=== PATIENT | male | born 1945 | race Hispanic/Latino ===

== ENCOUNTER 2019-01-04 13:05 | Emergency (ER) | payer OTHER, MEDICARE ==
[~2019-01-04 13:05] MED LIST: A RED PO; ATEN25TA PO; HYDROCHLOROT PO; PRAV40TA3 PO; VITAMIN D PO
[2019-01-04 14:04] LABS: BASOPHILS % (AUTO) 0.4 % (0.0-5.0); EOSINOPHILS % (AUTO) 0.9 % (0.0-8.0); HEMATOCRIT 43.3 % (42-54); LYMPHOCYTES % (AUTO) 12.9 % (21.0-51.0); MEAN CORPUSCULAR HEMOGLOBIN 30.4 pg (27.0-33.0); MEAN CORPUSCULAR VOLUME 89.3 fL (79-99); MONOCYTES % (AUTO) 7.1 % (3.0-13.0); NEUTROPHILS % (AUTO) 78.7 % (40.0-77.0); NUCLEATED RED BLOOD CELLS 0.1 % (0.0-0.19); PLATELET COUNT (AUTO) 179 K/uL (130-400); RED BLOOD CELL COUNT(AUTO) 4.85 MIL/uL (4.50-6.20); RED CELL DISTRIBUTION WIDTH 15.1 % (11.0-15.5); WHITE BLOOD COUNT (AUTO) 7.2 K/uL (4.8-10.8)
[2019-01-04 14:17] LABS: INR 1.06 (0.85-1.15); PARTIAL THROMBOPLASTIN TIME 28.4 SEC (26.3-35.5); PROTHROMBIN TIME 11.1 SEC (9.6-11.6)
[2019-01-04 14:19] LABS: CREATININE 0.5 mg/dL (0.5-1.5); POTASSIUM 3.4 mmol/L (3.5-5.1)
[2019-01-04 14:23] LABS: ALBUMIN 3.7 g/dL (3.5-5.0); BILIRUBIN,TOTAL 1.1 mg/dL (0.2-1.0); TOTAL PROTEIN, SERUM 7.3 g/dL (6.0-8.3)
[2019-01-04] MEDS ORDERED: POTASSIUM CHLORIDE 20 MEQ ERTAB PO ONE (15:03)
[2019-01-04] MEDS ORDERED: AMLODIPINE BESYLATE 5 MG TAB PO ONE (15:12)
[2019-01-04] MEDS ORDERED: HYDRALAZINE HCL 20 MG/ML VIAL ONE (15:31)
== END 2019-01-04 16:39 | disposition home or self-care (01) ==
LOC: EDH 13:05
DX: I10 Essential (primary) hypertension (principal); E78.5 Hyperlipidemia, unspecified
CPT/HCPCS: 36415; 71045; 80053; 84484; 85025; 85610; 85730; 93005; 96365; 99285; J0360

== ENCOUNTER 2020-10-11 18:21 | Observation (INO) | payer OTHER, MEDICARE ==
[~2020-10-11] VITALS: Ht 170.2 cm; Wt 88.1 kg
[2020-10-11] MEDS ORDERED: FENTANYL CITRATE PF 50 MCG/1 ML 2ML VIAL ONE (18:51)
[2020-10-11 19:30] LABS: BASOPHILS % (AUTO) 0.4 % (0.0-5.0); EOSINOPHILS % (AUTO) 0.2 % (0.0-8.0); HEMATOCRIT 42.2 % (42-54); MEAN CORPUSCULAR HEMOGLOBIN 29.4 pg (27.0-33.0); MEAN CORPUSCULAR HGB CONC 33.4 g/dL (32.0-36.0); MEAN CORPUSCULAR VOLUME 87.9 fL (79-99); MONOCYTES % (AUTO) 6.5 % (3.0-13.0); NEUTROPHILS % (AUTO) 85.6 % (40.0-77.0); PLATELET COUNT (AUTO) 207 K/uL (130-400); RED CELL DISTRIBUTION WIDTH 13.4 % (11.0-15.5); WHITE BLOOD COUNT (AUTO) 12.7 K/uL (4.8-10.8)
[2020-10-11] MEDS ORDERED: SODIUM CHLORIDE 0.9% 1000ML 1,000 ML IV ONE (19:33)
[2020-10-11 19:42] LABS: INR 1.1 (0.85-1.15); PROTHROMBIN TIME 11.9 SEC (9.6-11.6)
[2020-10-11 19:43] LABS: CARBON DIOXIDE 28 mmol/L (21-32); CHLORIDE 102 mmol/L (101-111); CREATININE 0.4 mg/dL (0.5-1.5); GLOMERULAR FILTR. RATE CALC 222 mL/min (>60); GLUCOSE,RANDOM 109 mg/dL (70-105); POTASSIUM 3.9 mmol/L (3.5-5.1); SODIUM SERUM 137 mmol/L (136-145); UREA NITROGEN, BLOOD 24 mg/dL (7-18)
[2020-10-11 19:47] LABS: ALANINE AMINOTRANSFERASE 42 U/L (12-78); ALBUMIN 3.4 g/dL (3.5-5.0); ASPARTATE AMINOTRANSFERASE 42 U/L (10-37); BILIRUBIN,TOTAL 0.7 mg/dL (0.2-1.0); TOTAL PROTEIN, SERUM 6.7 g/dL (6.0-8.3)
[2020-10-11 19:50] LABS: LIPASE < 50 U/L (114-286)
[2020-10-11] MEDS ORDERED: IOHEXOL-350 75 ML VIAL IV ONE (20:01)
[2020-10-12] MEDS ORDERED: NITROGLYCERIN 1GM/1 INCH PACKET TD ONE ×4 (01:55→22:02)
[2020-10-12] MEDS ORDERED: ASPIRIN 325 MG TABLET ONE (07:25)
[2020-10-12] MEDS: ASPIRIN 325 MG TABLET PO SCH (09:00)
[2020-10-12] MEDS ORDERED: GLUCAGON 1MG KIT 1 MG ML IM PRN (14:00)
[2020-10-12] MEDS ORDERED: LIDOCAINE HCL-MPF 1% 2ML VIAL IV PRN (14:00)
[2020-10-12] MEDS ORDERED: POTASSIUM CHLORIDE 20MEQ/100ML 100 ML IV PRN (14:00)
[2020-10-12] MEDS ORDERED: DEXTROSE 50%-WATER 50 ML DISP.SYRIN IV PRN (14:00)
[2020-10-12] MEDS ORDERED: MAGNESIUM 2GM PREMIX 50ML 50 ML IV PRN (14:00)
[2020-10-12] MEDS ORDERED: ACETAMINOPHEN 325 MG TAB PO PRN (14:00)
[2020-10-12] MEDS ORDERED: ONDANSETRON HCL 4 MG/2 ML VIAL IVP PRN (14:00)
[2020-10-12] MEDS ORDERED: POTASSIUM CHLORIDE 10% ELIXIR 20 MEQ/15 ML UDCUP PO PRN (14:00)
[2020-10-12] MEDS ORDERED: ENOXAPARIN SODIUM 30 MG/0.3 ML SQ ONE (16:08)
[2020-10-12] MEDS ORDERED: LACTULOSE 20 GM/30 ML UDCUP ONE ×2 (16:08→22:02)
[2020-10-12] MEDS ORDERED: FAMOTIDINE/PF 20 MG/2 ML VIAL IV ONE ×2 (16:09→23:00)
[2020-10-12] MEDS: NITROGLYCERIN 1GM/1 INCH PACKET TD SCH ×2 (19:15→22:00)
[2020-10-12] MEDS: FAMOTIDINE/PF 20 MG/2 ML VIAL IV SCH (21:00)
[2020-10-12] MEDS: LACTULOSE 20 GM/30 ML UDCUP PO SCH (21:00)
[2020-10-12] MEDS ORDERED: ATORVASTATIN CALCIUM 20 MG TABLET ONE (22:02)
[2020-10-13] MEDS: NITROGLYCERIN 1GM/1 INCH PACKET TD SCH ×4 (00:48→22:53)
[2020-10-13 02:50] VITALS: BP 146/83
[2020-10-13] MEDS ORDERED: ATOR40TA71 PO (03:02)
[2020-10-13] MEDS ORDERED: AREDS PO (03:02)
[2020-10-13] MEDS ORDERED: ATEN25TA PO (03:02)
[2020-10-13] MEDS ORDERED: VITAMIN D PO (03:02)
[2020-10-13] MEDS ORDERED: HYDR12.54 PO (03:02)
[2020-10-13 06:13] LABS: CREATININE 0.5 mg/dL (0.5-1.5); POTASSIUM 3.8 mmol/L (3.5-5.1)
[2020-10-13 07:21] LABS: HEMATOCRIT 37.7 % (42-54); MEAN CORPUSCULAR HEMOGLOBIN 29.9 pg (27.0-33.0); MEAN CORPUSCULAR HGB CONC 33.4 g/dL (32.0-36.0); MEAN CORPUSCULAR VOLUME 89.5 fL (79-99); RED BLOOD CELL COUNT(AUTO) 4.21 MIL/uL (4.50-6.20); RED CELL DISTRIBUTION WIDTH 13.7 % (11.0-15.5); WHITE BLOOD COUNT (AUTO) 9.6 K/uL (4.8-10.8)
[2020-10-13 08:24] VITALS: BP 164/95
[2020-10-13] MEDS: CHOLECALCIFEROL 1000 MG PO SCH (09:00)
[2020-10-13] MEDS: AREDS PO SCH (09:00)
[2020-10-13] MEDS: ASPIRIN 325 MG TABLET PO SCH (09:02)
[2020-10-13] MEDS: FAMOTIDINE/PF 20 MG/2 ML VIAL IV SCH ×2 (09:02→22:52)
[2020-10-13] MEDS: HYDROCHLOROTHIAZIDE 25 MG TABLET PO SCH (09:03)
[2020-10-13] MEDS: LACTULOSE 20 GM/30 ML UDCUP PO SCH ×2 (09:03→22:52)
[2020-10-13] MEDS: ATENOLOL 25 MG TABLET PO SCH (09:03)
[2020-10-13] MEDS: ENOXAPARIN SODIUM 30 MG/0.3 ML SQ SCH (09:05)
[2020-10-13 11:46] VITALS: BP 159/86
[2020-10-13 17:02] VITALS: BP 167/82
[2020-10-13 19:50] VITALS: BP 162/86
[2020-10-13] MEDS: ATORVASTATIN CALCIUM 40 MG TABLET PO SCH (22:53)
[2020-10-14] VITALS (7 sets, daily range): BP systolic 110–168; BP diastolic 59–90
[2020-10-14] MEDS: NITROGLYCERIN 1GM/1 INCH PACKET TD SCH ×3 (05:50→23:04)
[2020-10-14 05:59] LABS: HEMATOCRIT 38.3 % (42-54); MEAN CORPUSCULAR HEMOGLOBIN 30.2 pg (27.0-33.0); MEAN CORPUSCULAR HGB CONC 33.7 g/dL (32.0-36.0); MEAN CORPUSCULAR VOLUME 89.7 fL (79-99); RED BLOOD CELL COUNT(AUTO) 4.27 MIL/uL (4.50-6.20); RED CELL DISTRIBUTION WIDTH 13.4 % (11.0-15.5); WHITE BLOOD COUNT (AUTO) 8.9 K/uL (4.8-10.8)
[2020-10-14 06:28] LABS: CREATININE 0.4 mg/dL (0.5-1.5); MAGNESIUM 1.8 mg/dL (1.80-2.40); POTASSIUM 3.5 mmol/L (3.5-5.1)
[2020-10-14] MEDS: AREDS PO SCH (09:00)
[2020-10-14] MEDS: CHOLECALCIFEROL 1000 MG PO SCH (09:00)
[2020-10-14] MEDS: FAMOTIDINE/PF 20 MG/2 ML VIAL IV SCH ×2 (09:28→23:04)
[2020-10-14] MEDS: ASPIRIN 325 MG TABLET PO SCH (09:29)
[2020-10-14] MEDS: HYDROCHLOROTHIAZIDE 25 MG TABLET PO SCH (09:29)
[2020-10-14] MEDS: ATENOLOL 25 MG TABLET PO SCH (09:30)
[2020-10-14] MEDS: ENOXAPARIN SODIUM 30 MG/0.3 ML SQ SCH (09:35)
[2020-10-14] MEDS: LACTULOSE 20 GM/30 ML UDCUP PO SCH ×2 (09:35→23:03)
[2020-10-14] MEDS: POTASSIUM CHLORIDE 20 MEQ ERTAB PO PRN ×2 (09:37→12:15)
[2020-10-14] MEDS: ATORVASTATIN CALCIUM 40 MG TABLET PO SCH (23:04)
[2020-10-15 03:55] VITALS: BP 144/79
[2020-10-15] MEDS: NITROGLYCERIN 1GM/1 INCH PACKET TD SCH ×2 (05:57→14:00)
[2020-10-15 07:00] VITALS: BP 128/65
[2020-10-15] MEDS: ATENOLOL 25 MG TABLET PO SCH (09:00)
[2020-10-15] MEDS: FAMOTIDINE/PF 20 MG/2 ML VIAL IV SCH (10:29)
[2020-10-15] MEDS: ENOXAPARIN SODIUM 30 MG/0.3 ML SQ SCH (10:29)
[2020-10-15] MEDS: HYDROCHLOROTHIAZIDE 25 MG TABLET PO SCH (10:30)
[2020-10-15] MEDS: ASPIRIN 325 MG TABLET PO SCH (10:30)
[2020-10-15] MEDS: CHOLECALCIFEROL 1000 MG PO SCH (10:37)
[2020-10-15] MEDS: AREDS PO SCH (10:37)
[2020-10-15] MEDS: LACTULOSE 20 GM/30 ML UDCUP PO SCH (10:38)
[2020-10-15 11:30] VITALS: BP 119/76
[2020-10-15] MEDS ORDERED: IPRATROPIUM/ALBUTEROL SULFATE 3 ML SOLUTION IH PRN (12:30)
[2020-10-15 16:00] VITALS: BP 142/72
== END 2020-10-15 17:08 ==
LOC: EDH 18:21 → EDHIP 22:06 → 3CH 10-13 00:37
PROVIDERS: ADMIT Internal Medicine Critical Care Medicine; ATTEND Internal Medicine Critical Care Medicine
DX: R10.9 Unspecified abdominal pain (principal); R07.89 Other chest pain; I20.9 Angina pectoris, unspecified; E78.5 Hyperlipidemia, unspecified; I10 Essential (primary) hypertension; I71.4 Abdominal aortic aneurysm, without rupture; H91.90 Unspecified hearing loss, unspecified ear; Z79.899 Other long term (current) drug therapy; Z88.2 Allergy status to sulfonamides
CPT/HCPCS: 36415 ×4; 71045; 74177; 80048 ×2; 80053; 83605; 83690; 83735 ×2; 84484 ×4; 85025; 85027 ×2; 85378; 85610; 85730; 86677; 87040 ×2; 93005 ×4; 93306; 93356; 94640; 94664; 96372 ×3; 96374; 96376 ×3; 97039 ×3; 97161; 97530; 99285; G0378 ×89; G8979; G8981; G8982; G8983; J1650 ×4; J3010; J3490 ×7; J7030; Q9967

== ENCOUNTER 2022-02-16 11:38 | Observation (INO) | payer OTHER, MEDICARE ==
[~2022-02-16] VITALS: Ht 170.2 cm; Wt 82.7 kg
[~2022-02-16 11:38] MED LIST changes: -A RED PO; +AREDS PO; +ATOR40TA71 PO; +HYDR12.54 PO; -HYDROCHLOROT PO; -PRAV40TA3 PO
[2022-02-16 12:47] LABS: BASOPHILS % (AUTO) 0.3 % (0.0-5.0); EOSINOPHILS % (AUTO) 0.1 % (0.0-8.0); HEMATOCRIT 45.4 % (42-54); LYMPHOCYTES % (AUTO) 7.3 % (21.0-51.0); MEAN CORPUSCULAR HEMOGLOBIN 29.1 pg (27.0-33.0); MEAN CORPUSCULAR HGB CONC 34.1 g/dL (32.0-36.0); MEAN CORPUSCULAR VOLUME 85.3 fL (79-99); MONOCYTES % (AUTO) 10.4 % (3.0-13.0); NEUTROPHILS % (AUTO) 81.4 % (40.0-77.0); PLATELET COUNT (AUTO) 211 K/uL (130-400); RED BLOOD CELL COUNT(AUTO) 5.32 MIL/uL (4.50-6.20); WHITE BLOOD COUNT (AUTO) 11.4 K/uL (4.8-10.8)
[2022-02-16 13:10] LABS: B-TYPE NATRIURETIC PEPTIDE 68 pg/mL (0-100)
[2022-02-16 14:23] LABS: APPEARANCE,URINE CLEAR (CLEAR); BILIRUBIN,URINE NEGATIVE (NEGATIVE); COLOR,URINE YELLOW (YELLOW); GLUCOSE, URINE (UA) NEGATIVE (NEGATIVE); KETONES,URINE NEGATIVE (NEGATIVE); LEUKOCYTE ESTERASE ,URINE TRACE (NEGATIVE); NITRATE,URINE NEGATIVE (NEGATIVE); OCCULT BLOOD,URINE SMALL (NEGATIVE); PROTEIN,URINE NEGATIVE (NEGATIVE); UROBILINOGEN,URINE 0.2 mg/dL (0.2-1.0)
[2022-02-16 14:32] LABS: BACTERIA,URINE Rare /HPF (None Seen); SQUAMOUS EPITHELIAL CELL,UR Rare /HPF (0-2); WBC,URINE 0-1 /HPF (0-1)
[2022-02-16 15:51] LABS: CREATININE 0.7 mg/dL (0.5-1.5); POTASSIUM 3.9 mmol/L (3.5-5.1)
[2022-02-16 15:56] LABS: ALBUMIN 3.3 g/dL (3.5-5.0); BILIRUBIN,TOTAL 0.6 mg/dL (0.2-1.0); TOTAL PROTEIN, SERUM 7.1 g/dL (6.0-8.3)
[2022-02-16] MEDS ORDERED: TEMAZEPAM 15 MG CAPSULE PO PRN (18:30)
[2022-02-16] MEDS ORDERED: ACETAMINOPHEN 650 MG SUPPOSITORY RC PRN (18:30)
[2022-02-16] MEDS ORDERED: LACTULOSE 20 GM/30 ML UDCUP PO PRN (18:30)
[2022-02-16] MEDS ORDERED: ACETAMINOPHEN 325 MG TAB PO PRN (18:30)
[2022-02-16] MEDS ORDERED: ONDANSETRON 4MG INJ IVP PRN (18:30)
[2022-02-16] MEDS ORDERED: LABETALOL 20MG SYG IV PRN (18:30)
[2022-02-16] MEDS ORDERED: CLONIDINE HCL 0.1 MG TABLET PO PRN (18:30)
[2022-02-16] MEDS: INSULIN LISPRO 100 UNIT/ML 3ML SQ SCH (20:59)
[2022-02-16 23:35] VITALS: BP 111/76
[2022-02-17 04:00] VITALS: BP 95/60
[2022-02-17 05:52] LABS: HEMATOCRIT 42.2 % (42-54); MEAN CORPUSCULAR HEMOGLOBIN 29.6 pg (27.0-33.0); MEAN CORPUSCULAR HGB CONC 34.4 g/dL (32.0-36.0); MEAN CORPUSCULAR VOLUME 86.1 fL (79-99); RED BLOOD CELL COUNT(AUTO) 4.9 MIL/uL (4.50-6.20); WHITE BLOOD COUNT (AUTO) 11.4 K/uL (4.8-10.8)
[2022-02-17] MEDS: INSULIN LISPRO 100 UNIT/ML 3ML SQ SCH ×4 (06:11→21:00)
[2022-02-17 06:27] LABS: CREATININE 0.6 mg/dL (0.5-1.5); PHOSPHORUS 3.4 mg/dL (2.5-4.9); POTASSIUM 3.6 mmol/L (3.5-5.1)
[2022-02-17] MEDS ORDERED: HYDROCHLOROTHIAZIDE 25 MG TABLET PO SCH (09:00)
[2022-02-17 09:29] VITALS: BP 104/63
[2022-02-17] MEDS: POLYETHYLENE GLYCOL 3350 17 GM POWD.PACK PO SCH (10:36)
[2022-02-17] MEDS: ASPIRIN 81MG CHEW TAB PO SCH (10:36)
[2022-02-17] MEDS: ENOXAPARIN SODIUM 40 MG/0.4 ML SYRINGE SQ SCH (10:36)
[2022-02-17] MEDS: ATENOLOL 25 MG TABLET PO SCH (10:37)
[2022-02-17] MEDS: PANTOPRAZOLE 40 MG/VIAL IVP SCH (10:37)
[2022-02-17 12:13] VITALS: BP 110/66
[2022-02-17] MEDS: CEFTRIAXONE 2GM VIAL IVPB SCH (14:39)
[2022-02-17 17:42] VITALS: BP 111/58
[2022-02-17 19:22] VITALS: BP 109/64
[2022-02-17] MEDS ORDERED: ATORVASTATIN 40 MG TABLET PO SCH (21:00)
[2022-02-17] MEDS: KCL 20 MEQ ERTAB PO PRN ×2 (22:43→23:52)
[2022-02-17] MEDS ORDERED: LIDOCAINE HCL-MPF 1% 2ML VIAL IV PRN (23:00)
[2022-02-17] MEDS ORDERED: POTASSIUM CHLORIDE 10% ELIXIR 20 MEQ/15 ML UDCUP PO PRN (23:00)
[2022-02-17] MEDS ORDERED: POTASSIUM CHLORIDE 20MEQ/100ML 100 ML IV PRN (23:00)
[2022-02-17 23:58] VITALS: BP 131/74
[2022-02-18 03:35] VITALS: BP 135/78
[2022-02-18 03:41] VITALS: BP 126/80
[2022-02-18 05:30] LABS: HEMATOCRIT 41.9 % (42-54); MEAN CORPUSCULAR HGB CONC 33.4 g/dL (32.0-36.0); MEAN CORPUSCULAR VOLUME 86.9 fL (79-99); RED BLOOD CELL COUNT(AUTO) 4.82 MIL/uL (4.50-6.20); RED CELL DISTRIBUTION WIDTH 14.2 % (11.0-15.5); WHITE BLOOD COUNT (AUTO) 11.6 K/uL (4.8-10.8)
[2022-02-18 05:49] LABS: CREATININE 0.7 mg/dL (0.5-1.5); MAGNESIUM 2.1 mg/dL (1.80-2.40); PHOSPHORUS 2.7 mg/dL (2.5-4.9); POTASSIUM 4.3 mmol/L (3.5-5.1)
[2022-02-18] MEDS: INSULIN LISPRO 100 UNIT/ML 3ML SQ SCH ×2 (06:34→11:30)
[2022-02-18 10:03] VITALS: BP 122/74
[2022-02-18] MEDS: ASPIRIN 81MG CHEW TAB PO SCH (11:02)
[2022-02-18] MEDS: ENOXAPARIN SODIUM 40 MG/0.4 ML SYRINGE SQ SCH (11:03)
[2022-02-18] MEDS: POLYETHYLENE GLYCOL 3350 17 GM POWD.PACK PO SCH (11:03)
[2022-02-18] MEDS: PANTOPRAZOLE 40 MG/VIAL IVP SCH (11:03)
[2022-02-18] MEDS: ATENOLOL 25 MG TABLET PO SCH (11:03)
[2022-02-18] MEDS: CEFTRIAXONE 2GM VIAL IVPB SCH (11:03)
[2022-02-18 12:25] VITALS: BP 128/73
[2022-02-18] MEDS ORDERED: LACT PO (12:52)
[2022-02-18] MEDS ORDERED: CEFT2VIA12 IVPB (12:52)
[2022-02-18] MEDS ORDERED: ENOX40DI8 SQ (12:52)
[2022-02-18] MEDS ORDERED: ASPI-1005 PO (12:52)
[2022-02-18] MEDS ORDERED: ACET-2247 PO (12:52)
[2022-02-18] MEDS ORDERED: PANT40I PO (12:52)
[2022-02-18] MEDS ORDERED: PHARMACY COMMUNICATION MISC SCH (15:00)
== END 2022-02-18 14:50 ==
LOC: EDH 11:38 → EDHIP 18:14 → 3AH 23:35
PROVIDERS: ADMIT Internal Medicine Pulmonary Disease; ATTEND Internal Medicine Pulmonary Disease
DX: R53.1 Weakness (principal); Z20.822 Contact with and (suspected) exposure to COVID-19; I10 Essential (primary) hypertension; N39.0 Urinary tract infection, site not specified; E78.5 Hyperlipidemia, unspecified; R55 Syncope and collapse; E78.00 Pure hypercholesterolemia, unspecified; E86.0 Dehydration; E87.1 Hypo-osmolality and hyponatremia; H91.90 Unspecified hearing loss, unspecified ear; K59.09 Other constipation; E66.9 Obesity, unspecified; M85.80 Other specified disorders of bone density and structure, unspecified site; Z79.899 Other long term (current) drug therapy; Z68.28 Body mass index [BMI] 28.0-28.9, adult; Z98.890 Other specified postprocedural states; W18.30XA Fall on same level, unspecified, initial encounter; Y92.89 Other specified places as the place of occurrence of the external cause; Y93.89 Activity, other specified; Y99.8 Other external cause status
CPT/HCPCS: 36415 ×3; 70450; 71045; 73030; 80048 ×2; 80053; 81001; 82948 ×7; 83735 ×2; 83880; 84100 ×2; 84145; 84484; 85025; 85027 ×2; 86140; 87635; 87880; 93005; 96372 ×2; 96374; 96375; 96376; 97039; 97161; 97530; 99285; C9113 ×2; C9803; G0378 ×44; J0696 ×2; J1650 ×2